=== PATIENT | female | born 1990 | race African-American/Black ===

== ENCOUNTER 2017-04-29 06:19 | Inpatient (IN) | payer OTHER ==
[~2017-04-29] VITALS: Ht 154.9 cm; Wt 69.9 kg
[~2017-04-29 06:19] MED LIST: IBUPROFEN800 MG PO
[2017-04-29 07:32] LABS: ABSOLUTE BASOPHIL COUNT 0 /CUMM (0.0-0.2); ABSOLUTE EOSINOPHIL COUNT 0.1 /CUMM (0.0-0.7); ABSOLUTE GRANULOCYTE CT 4.4 /CUMM (1.4-6.5); ABSOLUTE LYMPH COUNT 2.5 /CUMM (1.2-3.4); ABSOLUTE MONOCYTE COUNT 0.7 /CUMM (0.10-0.60); BASOPHIL % 0.2 % (0.0-2.0); EOSINOPHIL % 0.7 % (0-5); GRANULOCYTE % 57.8 % (42.2-75.2); HEMATOCRIT 34.3 % (37-47); MEAN CORPUSCULAR HGB 25.6 PG (27.0-31.0); MEAN CORPUSCULAR HGB CONC 32.8 G/DL (33.0-37.0); MEAN CORPUSCULAR VOLUME 78.1 FL (81.0-99.0); MEAN PLATELET VOLUME 9.4 FL (7.4-10.4); PLATELET COUNT 206 /CUMM (130-400); RED BLOOD CELL CT 4.38 /CUMM (4.20-5.40); WHITE BLOOD CELL COUNT 7.6 /CUMM (4.8-10.8)
--- NOTE | 2017-04-29 15:32 | Labor & Delivery Summary ---
Delivery Summary Vaginal Delivery: Vaginal: vertex Episiotomy/Lacerations: Episiotomy/Lacerations: lac Type: first degree vaginal Repair: 2-0 int Anesthesia: epi Placenta: Placenta: spontanteous, normal, 3 vessel Anesthesia: block Baby's Weight: 7-11 Apgars - 1 Min: 9 Apgars - 5 Min: 9
--- NOTE | 2017-04-30 06:49 | History & Physical ---
General Information and HPI MD Statement: I have seen and personally examined ADRIANA MACKEY and documented this H&P. The patient is a 26 year old female at [40] weeks and 4] days gestation who presented with a chief complaint of [postdates]. History of Present Illness: 26yo lmp unknown EDC 04/25/17 with unremarkable care. 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 EENTM: Reports: no symptoms. Cardiovascular: Reports: no symptoms. Respiratory: Reports: no symptoms. GI: Reports: no symptoms. Genitourinary: Reports: no symptoms. Musculoskeletal: Reports: no symptoms. Skin: Reports: no symptoms. Neurological/Psychological: Reports: no symptoms. Hematologic/Endocrine: Reports: no symptoms. Immunologic/Allergic: Reports: no symptoms. All Other Systems: Reviewed and Negative Exam & Diagnostic Data Last 24 Hrs of Vital Signs/I&O vss Obstetric Exam Wgt Gained During : 30 Pelvimetry: gynecoid Dilation (cm): 3 Effacement (%): 50 Station: -2 Membranes: intact Fluid: unknown Fundal Height (cm): 40 Multiple Gestation? No Contractions: q4 Infant #1 - FHR Baseline: 140 Category: 1 Estimated Weight: 7.5 Presentation: cephalic Patient for Induction? Yes Labs Blood Type & Rh: B positive Antibody Screen: neg Hct/Hgb & Platelets #1: Hct/Hgb & Platelets #2: Rubella: imm VDRL #1: nr VDRL #2: nr HbsAg: neg HIV #1: nr HIV #2 nr 1 Hr P Group B Strep: neg Initial Ultrasound: wnl Anatomy Ultrasound: wnl Ultrasound for EFW: 7 Genetic Testing: neg Last 24 Hrs of Labs/Elliot: vss Microbiology 04/29 1030 URINE ROUT: Urine Culture - RECD ITS Data ITS Data Unobtainable at this time Assessment/Plan Assessment/Plan: postdates induction As Ranked By This Provider Problem List: 1. Post-dates Core Measures/Miscellaneous Hernandez Catheter Still Needed? No Venous Thromboembolism VTE Risk Factors: / VTE Contraindications: No Contraindications VTE Diagnosis: No VTE Type: NONE VTE Confirmed by (Test): NONE Beta Traci Is Beta Traci a Home Med? No If Yes, Was This Ordered Today? No Antibiotics Is Patient on Antibiotics? No
--- NOTE | 2017-04-30 06:53 | PN- Post Delivery/GYN ---
Subjective Subjective: no c/o Review of Systems: neg Objective Last 24 Hrs of Vital Signs/I&O vss Physical Exam: ff ext nt Assessment/Plan Assessment/Plan s/p ppd1 stable routine ppc circ Problem List: 1. Post-dates
[2017-04-30 10:34] LABS: ABSOLUTE BASOPHIL COUNT 0 /CUMM (0.0-0.2); ABSOLUTE EOSINOPHIL COUNT 0.1 /CUMM (0.0-0.7); ABSOLUTE GRANULOCYTE CT 7.7 /CUMM (1.4-6.5); ABSOLUTE LYMPH COUNT 2.3 /CUMM (1.2-3.4); ABSOLUTE MONOCYTE COUNT 0.6 /CUMM (0.10-0.60); BASOPHIL % 0.4 % (0.0-2.0); EOSINOPHIL % 0.5 % (0-5); GRANULOCYTE % 72.2 % (42.2-75.2); HEMATOCRIT 32.5 % (37-47); MEAN CORPUSCULAR HGB 25.5 PG (27.0-31.0); MEAN CORPUSCULAR HGB CONC 32.4 G/DL (33.0-37.0); MEAN CORPUSCULAR VOLUME 78.7 FL (81.0-99.0); MEAN PLATELET VOLUME 9.1 FL (7.4-10.4); PLATELET COUNT 182 /CUMM (130-400); RBC DISTRIBUTION WIDTH 15.4 % (11.5-14.5); RED BLOOD CELL CT 4.14 /CUMM (4.20-5.40); WHITE BLOOD CELL COUNT 10.6 /CUMM (4.8-10.8)
[2017-04-30] MEDS ORDERED: IBUPROFEN800 M1 PO (19:18)
[2017-04-30] MEDS ORDERED: DOCUSATE SODIU100 M3 PO (19:18)
== END 2017-05-01 10:59 | DRG 560 ==
LOC: GNO 06:19
PROVIDERS: ADMIT Obstetrics & Gynecology
DX: O70.0 First degree perineal laceration during delivery (principal); Z3A.40 40 weeks gestation of pregnancy; Z37.0 Single live birth
CPT/HCPCS: GNOS; 81001; 87086; J7120